=== PATIENT | male | born 1980 | race Caucasian/White ===

== ENCOUNTER 2018-11-14 08:47 | Emergency (ER) | payer MEDICARE, MEDICAID ==
[~2018-11-14] VITALS: Ht 182.9 cm; Wt 68.2 kg
[2018-11-14 09:11] VITALS: BP 145/78
[2018-11-14] MEDS ORDERED: PERM60CR19 TP (09:44)
== END 2018-11-14 10:00 | disposition home or self-care (01) ==
LOC: ER 08:48
DX: B86 Scabies (principal); G89.29 Other chronic pain; F17.200 Nicotine dependence, unspecified, uncomplicated; Z59.0 Homelessness; Z56.0 Unemployment, unspecified
CPT/HCPCS: 99283